=== PATIENT | male | born 1955 | race Caucasian/White ===

== ENCOUNTER 2017-07-17 02:32 | Inpatient (IN) | payer OTHER ==
[~2017-07-17] VITALS: Ht 177.8 cm; Wt 115.1 kg
[~2017-07-17 02:32] MED LIST: AGGRENOX1 CAPSULE PO; ASPIR 8181 M1 PO; ASPIRIN PO; AZOR 10/40 M1 TABLET PO; FENOFIBRIC ACI135 MG PO; GUAIFENESIN AC473 ML PO; HYZAAR 100-21 TABLET PO; LASIX40 MG PO; LEVAQUIN750 MG PO; LEVOTHYROXINE137 MCG PO; LEVOTHYROXINE150 MCG PO; LIPITOR40 MG PO; LOSARTAN POTAS100 MG PO; LOTREL; METFORMIN HCL500 M1 PO; METOPROLOL TAR100 MG PO; NIFEDIPINE ER90 MG PO; PLAVIX75 MG PO; TAMIFLU75 MG PO; TOPROL; TOPROL XL100 MG PO
[2017-07-17 03:15] LABS: HEMATOCRIT 39.1 % (38.0-50.0); HEMOGLOBIN 14.2 G/DL (12.5-16.6); MCH 31.9 PG (29.0-34.0); MCHC 36.3 G/DL (30.0-36.0); MCV 87.9 FL (86-99); PLATELET COUNT 281 K/uL (156-360); RBC DIS.WIDTH-CV 13.3 % (11.8-14.6); RBC DIS.WIDTH-SD 42.7 % (39-53); RED BLOOD COUNT 4.45 M/uL (4.00-5.50); WHITE BLOOD COUNT 9.7 K/uL (4.1-10.2)
[2017-07-17 03:21] LABS: INTER. NORMALIZED RATIO 1.1
[2017-07-17 03:23] LABS: D-DIMER ELISA < 150.00 ng/mLDDU (<230)
[2017-07-17 03:24] LABS: PTT 28.7 SEC (25-37)
[2017-07-17 03:28] LABS: ALBUMIN 4.2 g/dL (3.2-4.8); CHLORIDE 107 mEq/L (99-109); POTASSIUM 3.4 mEq/L (3.7-5.4); SODIUM 140 mEq/L (136-147)
[2017-07-17 03:31] LABS: GLUCOSE 165 mg/dL (70-99); TOTAL PROTEIN 6.4 g/dL (6.4-8.3)
[2017-07-17 03:33] LABS: TOTAL BILIRUBIN 0.8 mg/dL (0.0-1.0)
[2017-07-17 03:34] LABS: ALKALINE PHOSPHATASE 83 IU/L (3-129); GFR ESTIMATE (CALCULATED) > 59 mL/min/ (58.99-99999)
[2017-07-17 03:35] LABS: UREA NITROGEN (BUN) 18 mg/dL (9-23)
[2017-07-17 03:36] LABS: AST (GOT) 18 IU/L (2-34)
[2017-07-17 03:37] LABS: ALT (GPT) 23 IU/L (3-49); TROP-I INTERPRETATION NEGATIVE; TROPONIN-I 0.05 ng/mL (0.0-0.30)
[2017-07-17 03:38] LABS: LIPASE 23 U/L (1.0-51.0)
[2017-07-17 05:40] LABS: HEMATOCRIT 37.8 % (38.0-50.0); HEMOGLOBIN 13.8 G/DL (12.5-16.6); MCH 32.4 PG (29.0-34.0); MCHC 36.5 G/DL (30.0-36.0); MCV 88.7 FL (86-99); PLATELET COUNT 263 K/uL (156-360); RBC DIS.WIDTH-CV 13.4 % (11.8-14.6); RBC DIS.WIDTH-SD 43.4 % (39-53); RED BLOOD COUNT 4.26 M/uL (4.00-5.50); WHITE BLOOD COUNT 9.1 K/uL (4.1-10.2)
[2017-07-17 05:51] LABS: HDL CHOLESTEROL 25 MG/DL (Desirable>=40); LDL CHOLESTEROL 79 mg/dL (Desirable<100); NON-HDL CHOLESTEROL 126 mg/dL (Desirable<160); TOTAL CHOLESTEROL 151 mg/dL (Desirable<200); TRIGLYCERIDES 233 MG/DL (Normal: <150)
[2017-07-17 06:01] LABS: TROP-I INTERPRETATION NEGATIVE; TROPONIN-I 0.04 ng/mL (0.0-0.30)
[2017-07-17 08:38] VITALS: BP 184/114
[2017-07-17] MEDS ORDERED: ALDACTONE50 MG PO (09:12)
[2017-07-17 12:54] LABS: INTER. NORMALIZED RATIO 1.1
[2017-07-17 13:11] LABS: PTT 46.4 SEC (25-37)
[2017-07-17 13:14] LABS: TROP-I INTERPRETATION NEGATIVE; TROPONIN-I 0.04 ng/mL (0.0-0.30)
[2017-07-17 13:18] VITALS: BP 154/88
[2017-07-17 15:15] VITALS: BP 161/92
[2017-07-17 19:50] VITALS: BP 160/100
[2017-07-18] VITALS (7 sets, daily range): BP systolic 119–164; BP diastolic 65–88
[2017-07-18 05:56] LABS: HEMATOCRIT 38.1 % (38.0-50.0); HEMOGLOBIN 13.5 G/DL (12.5-16.6); MCH 31.9 PG (29.0-34.0); MCHC 35.4 G/DL (30.0-36.0); MCV 90.1 FL (86-99); PLATELET COUNT 239 K/uL (156-360); RBC DIS.WIDTH-CV 13.7 % (11.8-14.6); RBC DIS.WIDTH-SD 45.4 % (39-53); RED BLOOD COUNT 4.23 M/uL (4.00-5.50); WHITE BLOOD COUNT 6.1 K/uL (4.1-10.2)
[2017-07-18 06:23] LABS: CHLORIDE 103 MEQ/L (99-109); GFR ESTIMATE (CALCULATED) > 59 mL/min/ (58.99-99999); GLUCOSE 132 mg/dL (70-99); POTASSIUM 3.6 MEQ/L (3.7-5.4); SODIUM 138 MEQ/L (136-147); UREA NITROGEN (BUN) 14 mg/dL (9-23)
[2017-07-19 04:37] VITALS: BP 140/78
[2017-07-19 05:40] LABS: HEMOGLOBIN 13.4 G/DL (12.5-16.6); MCH 31.5 PG (29.0-34.0); MCHC 35.3 G/DL (30.0-36.0); MCV 89.4 FL (86-99); PLATELET COUNT 235 K/uL (156-360); RBC DIS.WIDTH-CV 13.6 % (11.8-14.6); RBC DIS.WIDTH-SD 44.1 % (39-53); RED BLOOD COUNT 4.25 M/uL (4.00-5.50); WHITE BLOOD COUNT 6.4 K/uL (4.1-10.2)
[2017-07-19 09:35] VITALS: BP 150/91
[2017-07-19 11:25] LABS: CHLORIDE 104 MEQ/L (99-109); CREATININE 0.9 MG/DL (0.6-1.3); GFR ESTIMATE (CALCULATED) > 59 mL/min/ (58.99-99999); GLUCOSE 153 mg/dL (70-99); POTASSIUM 3.9 MEQ/L (3.7-5.4); SODIUM 141 MEQ/L (136-147); UREA NITROGEN (BUN) 14 mg/dL (9-23)
[2017-07-19 12:37] VITALS: BP 148/90
[2017-07-19] MEDS ORDERED: LABETALOL HCL200 MG PO (13:11)
[2017-07-19] MEDS ORDERED: NIFEDIPINE ER90 MG PO (13:11)
[2017-07-19] MEDS ORDERED: HYDROCHLOROTHIA25 MG PO (13:16)
== END 2017-07-19 14:04 | disposition home or self-care (01) | DRG 305 ==
LOC: EME 02:32 → EDOF 04:10 → ENRESERV 04:11 → CANRESERV 04:37 → ENRESERV 04:37 → EDOF 04:40 → 4EAST 04:40 → ENRESERV 04:47 → 4EAST 08:08
PROVIDERS: Emergency Medicine; Hospitalist; Internal Medicine; Physician Assistant Medical
DX: I16.0 Hypertensive urgency (principal); I11.0 Hypertensive heart disease with heart failure; I50.9 Heart failure, unspecified; I25.10 Atherosclerotic heart disease of native coronary artery without angina pectoris; I25.2 Old myocardial infarction; Z95.1 Presence of aortocoronary bypass graft; I49.3 Ventricular premature depolarization; E87.6 Hypokalemia; I71.2 Thoracic aortic aneurysm, without rupture; G47.33 Obstructive sleep apnea (adult) (pediatric); E03.9 Hypothyroidism, unspecified; E11.9 Type 2 diabetes mellitus without complications; E78.5 Hyperlipidemia, unspecified; K57.90 Diverticulosis of intestine, part unspecified, without perforation or abscess without bleeding; E66.9 Obesity, unspecified; Z68.36 Body mass index [BMI] 36.0-36.9, adult; Z86.73 Personal history of transient ischemic attack (TIA), and cerebral infarction without residual deficits; Z87.442 Personal history of urinary calculi; Z87.891 Personal history of nicotine dependence
CPT/HCPCS: 71045; 76770; 80048; 80053; 80061; 82088 90; 82948; 83690; 83880; 84244 90; 84484; 85027; 85379; 85610; 85730; 93005; 93306; 93975; 99281; 99284; J1815; J2270; J2405; J7030